=== PATIENT | male | born 1955 | race Caucasian/White ===

== ENCOUNTER → 2019-12-02 | Outpatient (CLI) | payer OTHER ==
[~2019-12-02] MED LIST: ASPIRIN325 PO; NEURONTIN 300300 M1 PO; NORCO 5-325 TA1 EAC1 PO; SUBOXONE 8 MG-1 EAC3 SUBLING
== END ==
LOC: M.LAB 12:50
DX: S82.291K Other fracture of shaft of right tibia, subsequent encounter for closed fracture with nonunion (principal); E55.9 Vitamin D deficiency, unspecified; X58.XXXD Exposure to other specified factors, subsequent encounter

== ENCOUNTER → 2020-02-10 | Outpatient (CLI) | payer OTHER | LOC: M.LAB 10:29 | DX: E55.9 Vitamin D deficiency, unspecified (principal) ==